=== PATIENT | female | born 1980 | race Hispanic/Latino ===

== ENCOUNTER 2021-12-08 10:34 | Outpatient (CLI) | payer OTHER ==
--- NOTE | 2021-12-08 13:25 | Mammography Report ---
BILATERAL DIGITAL DIAGNOSTIC MAMMOGRAM CONVENTIONAL, 12/08/2021 BILATERAL LIMITED BREAST ULTRASOUND CLINICAL INFORMATION / INDICATION: Bilateral palpable abnormality for 3 months TECHNIQUE: Digital bilateral mammographic imaging was performed. Spot compression views were obtained . Limited ultrasound was performed. COMPARISON: Bilateral breast ultrasound and bilateral mammogram 03/27/2016 FINDINGS: Breast Density: The breasts are heterogeneously dense, which may obscure small masses. MAMMOGRAPHIC FINDINGS: No abnormalities are seen in either breast, including the areas of patient com plaint laterally. ULTRASOUND FINDINGS: Targeted ultrasound evaluation was performed of the area of interest. No abnorma lities seen in the area of patient complaint on the left breast. In the right breast laterally in the area of patient complaint no abnormalities are seen. However, incidental note is made of an ovoid wi juan than tall solid nodule in the 9:00 position retroareolar area. Mild through transmission is seen and minimal peripheral vascularity is noted. No shadowing is seen. Borders are smooth and defined. No dule measures 18 mm. IMPRESSION: 1. No significant abnormalities are seen in the areas of patient complaint of pain laterally in eithe r breast 2. 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 Recommend 6 month ul trasound follow-up on the right. 3. Recommend clinical follow-up of patient's pain complaints bilaterally. Follow up recommendation: As above BI-RADS Category 3: PROBABLY BENIGN. Followup in 6 months. A "normal" or negative report should not discourage follow up or biopsy of a clinically significant f inding. A written summary of these findings will be mailed to the patient. The patient will be entered into a mammography reporting system which will generate a reminder letter for the patient's next appointmen t at the appropriate interval. According to the [employer], yearly mammograms are recommended starting at age 40 and continuing as long as a woman is in good health. Breast MRI is recommended for women with an te roximately 20-25% or greater lifetime risk of breast cancer, including women with a strong family his tory of breast or ovarian cancer and women who have been treated for Hodgkin's disease. Signer Name: Yomi Greer MD Signed: 12/08/2021 1:20 PM Workstation Name: [id number]
== END 2021-12-08 10:35 | disposition home or self-care (01) ==
LOC: MAMMO 10:34
PROVIDERS: ATTEND Obstetrics & Gynecology
DX: N64.4 Mastodynia (principal)
CPT/HCPCS: 77066